=== PATIENT | female | born 1975 | race Caucasian/White ===

== ENCOUNTER 2024-05-11 08:27 | Emergency (ER) | payer SELFPAY ==
[2024-05-11 08:49] VITALS: BP 116/79; PULSE 105; RESP 18; TEMP 36.7; O2SAT 96; BMI 24.9
--- NOTE | 2024-05-11 09:00 | ED_ITS ---
HPI - Dental/Oral 2 General: Chief complaint: Dental/Oral Stated complaint: mouth swollen, cap fell off tooth Time Seen by Provider: 05/11/24 08:55 Source: patient Mode of arrival: ambulatory Limitations: no limitations History of Present Illness: Patient is a 48-year-old female presents to ED today with complaint of dental pain/infection. She states that several days ago, one of her caps fell off to one of her bottom teeth. She states since then, over the past 2 days, she has noticed swelling. She is eating and drinking normally. She is not having any difficulty speaking, swallowing, or controlling saliva. No fevers. She states she does have a dental follow-up scheduled for 05/19. MD Complaint: tooth pain Onset (ago): day(s) Duration: constant Severity: moderate Relieving factors: nothing Exacerbating factors: nothing Context: history of dental caries Associated symptoms: Denies ear or mastoid pain, fever(s) or odynophagia Treatment prior to arrival: oral analgesic Related Data Home Medications Medication Instructions Recorded Confirmed ibuprofen 200 mg tablet (Advil) 800 mg PO Q6H PRN Pain 05/11/24 05/11/24 semaglutide 0.25 mg or 0.5 mg (2 0.25 mg SUBCUT Q7D 05/11/24 05/11/24 mg/3 mL) subcutaneous pen injector (Ozempic) Previous Rx's Medication Instructions Recorded clindamycin HCl 300 mg capsule 300 mg PO Q6H 7 days #28 caps 05/11/24 tramadol 50 mg tablet 50 mg PO Q6H PRN pain #8 tabs 05/11/24 Allergies Allergy/AdvReac Type Severity Reaction Status Date / Time morphine Allergy ALGY-Hives Verified 05/11/24 09:12 Review of Systems 2 Const: Denies: fever(s), chills, body aches, fatigue or malaise ENMT: Reports: dental pain; Denies: throat pain, odynophagia, hoarseness, bleeding gums, ear or mastoid pain, nasal discharge, nasal congestion or sinus pain Card: Denies: chest pain Resp: Denies: dyspnea GI: Denies: nausea or vomiting Musc: Denies: neck pain Skin/Breast: Denies: rash Neuro: Denies: headache(s) Physical Exam 2 Const: COMMON NORMALS: no acute distress, no limitations, alert and well nourished GENERAL APPEARANCE: cooperative HENMT: FACE & SINUS: sinuses nontender FACE & SINUS IMAGES: 1. mild edema/no drainable abscess MOUTH: Normal oral and palatal mucosa present, lip normal, tongue normal and other (floor of mouth is normal) TEETH & GINGIVA: Yes caries and Yes poor dentition TEETH & GINGIVA IMAGES: 1. severe decay THROAT: posterior oropharynx normal and tonsils normal Neck/C-Spine: COMMON NORMALS: no lymphadenopathy GENERAL: Yes normal visual inspection, No anterior neck swelling and No submandibular swelling Resp: COMMON NORMALS: normal respiratory effort and clear to auscultation bilaterally AUSCULTATION: clear to auscultation bilaterally Cardio: COMMON NORMALS: regular rate and regular rhythm RATE: regular rate RHYTHM: regular rhythm Neuro: SENSORIUM/ORIENTATION: Yes alert Skin: COMMON NORMALS: no rashes or lesions noted GENERAL SKIN EXAM: no rashes or lesions noted Course 2 Vital Signs: Vital signs: Vital Signs Temperature 98.1 F 05/11/24 08:49 Pulse Rate 105 H 05/11/24 09:17 Respiratory Rate 18 05/11/24 08:49 Blood Pressure 116/79 05/11/24 09:17 Pulse Oximetry 96 05/11/24 09:17 Oxygen Delivery Me thod Room Air 05/11/24 08:49 MDM - Dental/Oral Medical Decision Making Patient has no drainable fluid collection at this time. She will be treated with antibiotics. She is requesting pain medication. She states she already has dental follow-up scheduled for 05/19. Return to ED precautions given. Differential Diagnosis Likely gingival abscess, dental caries, toothache and dental abscess Medical Records I reviewed the patient's medical records. No radiology studies performed this visit Discharge Plan Discharge Patient Disposition: Home Clinical Impression: Toothache, Dental caries Condition: Stable Prescriptions: New clindamycin HCl 300 mg capsule 300 mg PO Q6H 7 Days Qty: 28 0RF tramadol 50 mg tablet 50 mg PO Q6H PRN (Reason: pain) Qty: 8 0RF No Action Ozempic 0.25 mg or 0.5 mg (2 mg/3 mL) pen injector 0.25 mg SUBCUT Q7D ibuprofen [Advil] 200 mg Tablet 800 mg PO Q6H PRN (Reason: Pain) Discharge Orders: Discharge ED (Routine); Ordered 05/11/24 Ordered By: Gloria Melendez Referrals: Shruthi Zambrano APRN [Primary Care Provider] - Patient Instructions: Toothache (ED), Dental Abscess Activity Restrictions/Additional Instructions: Please follow-up with your dentist on 05/19 as scheduled. Fill your antibiotics and begin them immediately. You need to return to the emergency department for worsening pain, swelling, trouble eating, drinking, swallowing, or or controlling your saliva/secretions. Stand Alone Forms: Work/School Release Coding Level of Care Code ED Behavior Interventionist for Lucretia Hodge
[2024-05-11] MEDS: HYDROcodone-acetaminophen 5-325 mg Tablet 1 TAB PO (09:13)
[2024-05-11 09:17] VITALS: BP 116/79; PULSE 105; O2SAT 96
== END 2024-05-11 09:22 | disposition home or self-care (01) ==
PROVIDERS: Emergency Provider Physician Assistant; PCP Nurse Practitioner Family
DX: K08.89 Other specified disorders of teeth and supporting structures (principal); K02.9 Dental caries, unspecified
CPT/HCPCS: 99283